=== PATIENT | male | born 1955 | race Caucasian/White ===

== ENCOUNTER 2016-10-15 21:20 | Emergency (ER) | payer OTHER ==
[~2016-10-15] VITALS: Ht 167.6 cm; Wt 73.0 kg
[~2016-10-15 21:20] MED LIST: ALTOPREV40 MG PO; AMLODIPINE BESY10 MG PO; ASPIR-LOW81 MG PO; BLOOD GLUCOSE1 EACH MC; CARVEDILOL12.5 MG PO; CLOPIDOGREL75 MG PO; COMBIVENT RESPIM4 GM IH; COREG12.5 M1 PO; Combivent IH; Coreg PO; ENDOCET 5-3251 EACH PO; Ecotrin PO; GABAPENTIN300 MG PO; GLIPIZIDE10 M1 PO; GLUCOPHAGE1000 MG PO; Glucophage PO; Glucotrol PO; HYDROCHLOROTH12.5 M3 PO; HYDRODIURIL,O12.5 M2 PO; Habitrol,Nicoderm CQ TD; JANUVIA100 MG PO; LANTUS 10100 UNITS/ SC; LANTUS 3 M100 UNITS1 SC; LISINOPRIL20 MG PO; LOVASTATIN20 MG PO; LOVASTATIN40 MG PO; METFORMIN HCL1000 MG PO; MEVACOR40 MG PO; MICROZIDE12.5 M1 PO; NEURONTIN300 MG PO; NICOTINE PATCH1 EAC2 TD; NORVASC10 MG PO; NORVASC5 MG PO; NOVOLOG PE100 UNITS/ SC; OXYCODONE HCL5 MG PO; PANTOPRAZOLE SO40 MG PO; PERCOCET 5/31 TABLET PO; PERCOCET 7.51 TABLET PO; PLAVIX75 MG PO; PRAVASTATIN SOD40 MG PO; PRINIVIL20 MG PO; PROTONIX40 MG PO; ZESTRIL20 MG PO; Zestril,Prinivil PO; [UNRECOGNIZED DRUG - REMARK]
[2016-10-16 00:19] VITALS: BP 128/80
== END 2016-10-16 00:33 | disposition home or self-care (01) ==
LOC: EME 21:20
DX: M54.5 Low back pain (principal); M79.1 Myalgia; W10.9XXA Fall (on) (from) unspecified stairs and steps, initial encounter; J45.909 Unspecified asthma, uncomplicated; I10 Essential (primary) hypertension; E78.5 Hyperlipidemia, unspecified; E11.9 Type 2 diabetes mellitus without complications; Z79.4 Long term (current) use of insulin; F17.200 Nicotine dependence, unspecified, uncomplicated; Z86.73 Personal history of transient ischemic attack (TIA), and cerebral infarction without residual deficits; Z87.442 Personal history of urinary calculi
CPT/HCPCS: 72100; 99281; 99284; J1170

== ENCOUNTER 2017-09-09 18:36 | Observation (INO) | payer OTHER ==
[~2017-09-09] VITALS: Ht 167.6 cm; Wt 67.5 kg
[2017-09-09 19:32] LABS: HEMATOCRIT 43.9 % (38.0-50.0); MCH 28.8 PG (29.0-34.0); MCHC 34.2 G/DL (30.0-36.0); MCV 84.3 FL (86-99); PLATELET COUNT 216 K/uL (156-360); RBC DIS.WIDTH-CV 14.4 % (11.8-14.6); RBC DIS.WIDTH-SD 43.9 % (39-53); RED BLOOD COUNT 5.21 M/uL (4.00-5.50); WHITE BLOOD COUNT 6.3 K/uL (4.1-10.2)
[2017-09-09 19:36] LABS: CARBON DIOXIDE (BICARBONATE) 27.7 MEQ/L (20-31)
[2017-09-09 19:46] LABS: CHLORIDE 101 mEq/L (99-109); POTASSIUM 4.1 mEq/L (3.7-5.4); SODIUM 135 mEq/L (136-147)
[2017-09-09 19:51] LABS: GFR ESTIMATE (CALCULATED) > 59 mL/min/ (58.99-99999); GLUCOSE 565 mg/dL (70-99)
[2017-09-09 19:52] LABS: UREA NITROGEN (BUN) 17 mg/dL (9-23)
[2017-09-09] MEDS ORDERED: METFORMIN HCL1000 MG PO (22:08)
[2017-09-09 22:18] LABS: BASOPHIL (%) 0.5 % (0-1); EOSINOPHIL (%) 1.3 % (0-5); EOSINOPHIL COUNT 0.1 K/uL (0-0.3); IMMATURE GRANULOCYTE (%) 0.2 % (0.0-0.7); LYMPHOCYTE (%) 17.1 % (15-42); LYMPHOCYTE COUNT 1.1 K/uL (1.0-2.8); MONOCYTE (%) 7.3 % (3-12); MONOCYTE COUNT 0.5 K/uL (0-0.8); NEUTROPHIL (%) 73.6 % (45-76); NEUTROPHIL COUNT 4.7 K/uL (1.8-6.4)
[2017-09-09 22:19] LABS: ALBUMIN 3.5 g/dL (3.2-4.8)
[2017-09-09 22:22] LABS: TOTAL PROTEIN 6.3 g/dL (6.4-8.3)
[2017-09-09 22:23] LABS: TOTAL BILIRUBIN 0.3 mg/dL (0.0-1.0)
[2017-09-09 22:24] LABS: SERUM ETHYL ALCOHOL < 10 mg/dL
[2017-09-09 22:25] LABS: ALKALINE PHOSPHATASE 131 IU/L (3-129)
[2017-09-09 22:27] LABS: AST (GOT) 17 IU/L (2-34); DIRECT BILIRUBIN 0.1 mg/dL (0.0-0.3)
[2017-09-09 22:28] LABS: ALT (GPT) 17 IU/L (3-49)
[2017-09-09 22:54] LABS: APPEARANCE CLEAR ((CLEAR)); BILIRUBIN NEGATIVE; BLOOD NEGATIVE; COLOR COLORLESS ((YELLOW)); GLUCOSE (STRIP) >=500; KETONES 5; LEUKOCYTES NEGATIVE; NITRITE NEGATIVE; PROTEIN (STRIP) NEGATIVE; SPECIFIC GRAVITY 1.025 (1.000-1.030); UCUL ADDED? NO; UROBILINOGEN 0.2 MG/DL (0.2-1.0)
[2017-09-09 23:03] LABS: AMPHETAMINE NEGATIVE (500 ng/mL); BARBITURATES NEGATIVE (200 ng/mL); BENZODIAZEPINES NEGATIVE (150 ng/mL); BUPRENORPHINE NEGATIVE (10 ng/mL); COCAINE NEGATIVE (150 ng/mL); METHADONE NEGATIVE (200 ng/mL); METHAMPHETAMINE NEGATIVE (500 ng/mL); OPIATES (MORPHINE) NEGATIVE (100 ng/mL); OXYCODONE NEGATIVE (100 ng/mL); PHENCYCLIDINE NEGATIVE (25 ng/mL); PROPOXYPHENE NEGATIVE (300 ng/mL); THC CANNABINOIDS NEGATIVE (50 ng/mL); TRICYCLIC ANTIDEPRESSANTS NEGATIVE (300 ng/mL)
[2017-09-09 23:42] LABS: HDL CHOLESTEROL 42 MG/DL (Desirable>=40); NON-HDL CHOLESTEROL 170 mg/dL (Desirable<160); TOTAL CHOLESTEROL 212 mg/dL (Desirable<200); TRIGLYCERIDES 605 MG/DL (Normal: <150)
[2017-09-09 23:55] VITALS: BP 185/93
[2017-09-10 03:50] VITALS: BP 130/82
[2017-09-10 07:42] VITALS: BP 128/75
[2017-09-10 11:14] VITALS: BP 135/76
[2017-09-10 12:12] LABS: HEMOGLOBIN A1c (GLYCOHEMOGLOB) 14.9 % (Below 5.7)
[2017-09-10] MEDS ORDERED: NICOTINE PATCH1 EAC2 TD (14:36)
[2017-09-10] MEDS ORDERED: ATORVASTATIN CA80 MG PO (14:36)
[2017-09-10] MEDS ORDERED: LISINOPRIL20 MG PO (14:36)
[2017-09-10] MEDS ORDERED: CARVEDILOL6.25 MG PO (14:36)
[2017-09-10] MEDS ORDERED: CLOPIDOGREL75 MG PO (14:36)
[2017-09-10] MEDS ORDERED: LANTUS 3 M100 UNITS1 SC (14:36)
[2017-09-10] MEDS ORDERED: ASPIR-LOW81 MG PO (14:36)
[2017-09-10] MEDS ORDERED: LEVEMIR FL100 UNIT/1 SC (15:05)
[2017-09-10] MEDS ORDERED: PEN NEEDLE1 EAC9 MC (15:05)
== END 2017-09-10 16:07 | disposition home or self-care (01) ==
LOC: EME 18:36 → 5SOUTH 21:59 → EDOF 21:59 → 5SOUTH 21:59 → ENRESERV 22:00 → 5SOUTH 23:36
PROVIDERS: Emergency Medicine; Hospitalist; Physician Assistant Medical
DX: R20.0 Anesthesia of skin (principal); R53.1 Weakness; I69.398 Other sequelae of cerebral infarction; Z91.14 Patient's other noncompliance with medication regimen; I50.22 Chronic systolic (congestive) heart failure; J44.9 Chronic obstructive pulmonary disease, unspecified; F17.210 Nicotine dependence, cigarettes, uncomplicated; I42.9 Cardiomyopathy, unspecified; E11.40 Type 2 diabetes mellitus with diabetic neuropathy, unspecified; I10 Essential (primary) hypertension; E78.5 Hyperlipidemia, unspecified; G89.29 Other chronic pain; Z79.4 Long term (current) use of insulin; Z79.82 Long term (current) use of aspirin; Z79.02 Long term (current) use of antithrombotics/antiplatelets
CPT/HCPCS: 70450; 70551; 80048; 80061; 80076; 81003; 82010; 82803; 82948; 83036; 83735; 85025; 85027; 93005; 93880; 99202; 99281; 99284; G0378; G0480; J0360; J1644; J3480; J7030

== ENCOUNTER 2017-11-20 11:37 | Inpatient (IN) | payer OTHER ==
[~2017-11-20] VITALS: Ht 167.6 cm; Wt 61.2 kg
[2017-11-20] VITALS (9 sets, daily range): BP systolic 96–187; BP diastolic 58–107
[~2017-11-20 11:37] MED LIST changes: +ATORVASTATIN CA80 MG PO; +CARVEDILOL6.25 MG PO; +LEVEMIR FL100 UNIT/1 SC; +PEN NEEDLE1 EAC9 MC
[2017-11-20 12:28] LABS: BASOPHIL (%) 0.7 % (0-1); BASOPHIL COUNT 0.1 K/uL (0-0.1); EOSINOPHIL COUNT 0.1 K/uL (0-0.3); HEMATOCRIT 48.7 % (38.0-50.0); HEMOGLOBIN 15.9 G/DL (12.5-16.6); IMMATURE GRANULOCYTE (%) 0.1 % (0.0-0.7); LYMPHOCYTE (%) 15.3 % (15-42); LYMPHOCYTE COUNT 1.1 K/uL (1.0-2.8); MCH 28.5 PG (29.0-34.0); MCHC 32.6 G/DL (30.0-36.0); MCV 87.3 FL (86-99); MONOCYTE (%) 4.8 % (3-12); MONOCYTE COUNT 0.4 K/uL (0-0.8); NEUTROPHIL (%) 78.1 % (45-76); NEUTROPHIL COUNT 5.7 K/uL (1.8-6.4); PLATELET COUNT 211 K/uL (156-360); RBC DIS.WIDTH-CV 15.4 % (11.8-14.6); RED BLOOD COUNT 5.58 M/uL (4.00-5.50); WHITE BLOOD COUNT 7.3 K/uL (4.1-10.2)
[2017-11-20 12:32] LABS: INTER. NORMALIZED RATIO 0.9
[2017-11-20 12:35] LABS: PTT 23.8 SEC (25-37)
[2017-11-20 12:47] LABS: TROP-I INTERPRETATION NEGATIVE; TROPONIN-I < 0.01 ng/mL (0.0-0.30)
[2017-11-20 12:56] LABS: CHLORIDE 98 MEQ/L (99-109); CREATININE 1.1 MG/DL (0.6-1.3); GFR ESTIMATE (CALCULATED) > 59 mL/min/ (58.99-99999); GLUCOSE 362 mg/dL (70-99); POTASSIUM 4.4 MEQ/L (3.7-5.4); SODIUM 135 MEQ/L (136-147); UREA NITROGEN (BUN) 27 mg/dL (9-23)
[2017-11-20 13:31] LABS: COMMENTS - BLOOD GASES A+C+; FI02 0.21 %; PCO2 22 mm Hg (35-45); PO2 101 mm Hg (80-100); SITE RR; pH 7.25 (7.35-7.45)
[2017-11-20 13:32] LABS: BASE EXCESS -15.3 mEq/L (-3 to +3); BICARBONATE 9.6 mEq/L (22-26); METHEMOGLOBIN 1.1 % (0-1.5)
[2017-11-20] MEDS ORDERED: CLOPIDOGREL75 MG PO (14:46)
[2017-11-20] MEDS ORDERED: METFORMIN HCL1000 MG PO (14:46)
[2017-11-20] MEDS ORDERED: CARVEDILOL6.25 MG PO (14:47)
[2017-11-20] MEDS ORDERED: ATORVASTATIN CA80 MG PO (14:47)
[2017-11-20] MEDS ORDERED: LISINOPRIL20 MG PO (14:47)
[2017-11-20] MEDS ORDERED: ASPIR 8181 M1 PO (14:47)
[2017-11-20] MEDS ORDERED: LEVEMIR FL100 UNIT/1 SC (14:48)
[2017-11-20 16:57] LABS: CHLORIDE 106 MEQ/L (99-109); CREATININE 0.9 MG/DL (0.6-1.3); GFR ESTIMATE (CALCULATED) > 59 mL/min/ (58.99-99999); GLUCOSE 262 mg/dL (70-99); HDL CHOLESTEROL 44 MG/DL (Desirable>=40); LDL CHOLESTEROL 132 mg/dL (Desirable<100); MAGNESIUM 2.1 mg/dl (1.3-2.7); NON-HDL CHOLESTEROL 160 mg/dL (Desirable<160); PHOSPHORUS 2.9 mg/dL (2.5-4.9); POTASSIUM 4.2 MEQ/L (3.7-5.4); SODIUM 139 MEQ/L (136-147); TOTAL CHOLESTEROL 204 mg/dL (Desirable<200); TRIGLYCERIDES 141 MG/DL (Normal: <150); UREA NITROGEN (BUN) 21 mg/dL (9-23)
[2017-11-20 19:59] LABS: CHLORIDE 108 mEq/L (99-109); SODIUM 136 mEq/L (136-147)
[2017-11-20 20:01] LABS: GLUCOSE 362 mg/dL (70-99)
[2017-11-20 20:04] LABS: CREATININE 1.2 mg/dL (0.6-1.3); GFR ESTIMATE (CALCULATED) > 59 mL/min/ (58.99-99999); PHOSPHORUS 1.9 mg/dL (2.5-4.9)
[2017-11-20 20:05] LABS: UREA NITROGEN (BUN) 20 mg/dL (9-23)
[2017-11-20 20:24] LABS: BENZODIAZEPINES, URINE SCREEN Negative (200 ng/mL)
[2017-11-21] VITALS (16 sets, daily range): BP systolic 14–149; BP diastolic 58–92
[2017-11-21 00:40] LABS: CHLORIDE 111 mEq/L (99-109); SODIUM 137 mEq/L (136-147)
[2017-11-21 00:42] LABS: GLUCOSE 220 mg/dL (70-99)
[2017-11-21 00:45] LABS: PHOSPHORUS 2.5 mg/dL (2.5-4.9)
[2017-11-21 00:46] LABS: CREATININE 1.1 mg/dL (0.6-1.3); GFR ESTIMATE (CALCULATED) > 59 mL/min/ (58.99-99999)
[2017-11-21 00:47] LABS: UREA NITROGEN (BUN) 25 mg/dL (9-23)
[2017-11-21 05:42] LABS: HEMATOCRIT 38.9 % (38.0-50.0); MCH 27.7 PG (29.0-34.0); MCHC 32.1 G/DL (30.0-36.0); MCV 86.3 FL (86-99); PLATELET COUNT 154 K/uL (156-360); RBC DIS.WIDTH-CV 15.2 % (11.8-14.6); RBC DIS.WIDTH-SD 47.8 % (39-53); RED BLOOD COUNT 4.51 M/uL (4.00-5.50); WHITE BLOOD COUNT 6.3 K/uL (4.1-10.2)
[2017-11-21 05:43] LABS: HEMOGLOBIN 12.5 G/DL (12.5-16.6)
[2017-11-21 06:06] LABS: CHLORIDE 111 MEQ/L (99-109); GLUCOSE 138 mg/dL (70-99); POTASSIUM 3.8 MEQ/L (3.7-5.4); SODIUM 137 MEQ/L (136-147); UREA NITROGEN (BUN) 17 mg/dL (9-23)
[2017-11-21 06:11] LABS: CREATININE 0.6 MG/DL (0.6-1.3)
[2017-11-21 06:12] LABS: GFR ESTIMATE (CALCULATED) > 59 mL/min/ (58.99-99999); PHOSPHORUS 1.7 mg/dL (2.5-4.9)
[2017-11-21 08:49] LABS: CHLORIDE 110 MEQ/L (99-109); CREATININE 0.6 MG/DL (0.6-1.3); GFR ESTIMATE (CALCULATED) > 59 mL/min/ (58.99-99999); GLUCOSE 145 mg/dL (70-99); POTASSIUM 3.8 MEQ/L (3.7-5.4); SODIUM 137 MEQ/L (136-147); UREA NITROGEN (BUN) 17 mg/dL (9-23)
[2017-11-21 10:51] LABS: HEMOGLOBIN A1c (GLYCOHEMOGLOB) 16.1 % (Below 5.7)
[2017-11-21 12:16] LABS: CHLORIDE 108 MEQ/L (99-109); CREATININE 0.6 MG/DL (0.6-1.3); GFR ESTIMATE (CALCULATED) > 59 mL/min/ (58.99-99999); PHOSPHORUS 1.7 mg/dL (2.5-4.9); POTASSIUM 3.7 MEQ/L (3.7-5.4); SODIUM 135 MEQ/L (136-147); UREA NITROGEN (BUN) 17 mg/dL (9-23)
[2017-11-21 12:33] LABS: GLUCOSE 269 mg/dL (70-99)
[2017-11-22 07:18] VITALS: BP 140/82
[2017-11-22 15:11] VITALS: BP 142/92
[2017-11-22 23:49] VITALS: BP 164/78
[2017-11-23 07:37] VITALS: BP 119/76
[2017-11-23 16:05] VITALS: BP 163/95
[2017-11-23 23:50] VITALS: BP 134/81
[2017-11-24 06:04] LABS: HEMATOCRIT 43.7 % (38.0-50.0); HEMOGLOBIN 14.2 G/DL (12.5-16.6); MCH 28.1 PG (29.0-34.0); MCHC 32.5 G/DL (30.0-36.0); MCV 86.5 FL (86-99); PLATELET COUNT 168 K/uL (156-360); RBC DIS.WIDTH-CV 15.3 % (11.8-14.6); RED BLOOD COUNT 5.05 M/uL (4.00-5.50)
[2017-11-24 06:33] LABS: CHLORIDE 106 MEQ/L (99-109); CREATININE 0.6 MG/DL (0.6-1.3); GFR ESTIMATE (CALCULATED) > 59 mL/min/ (58.99-99999); GLUCOSE 95 mg/dL (70-99); POTASSIUM 3.4 MEQ/L (3.7-5.4); SODIUM 141 MEQ/L (136-147); UREA NITROGEN (BUN) 12 mg/dL (9-23)
[2017-11-24 07:25] VITALS: BP 131/82
[2017-11-25] VITALS: BP 182/110
[2017-11-25 01:09] VITALS: BP 147/74
[2017-11-25 07:48] VITALS: BP 109/74
[2017-11-25] MEDS ORDERED: NICOTINE PATCH1 EAC2 TD (11:30)
== END 2017-11-25 14:00 | disposition home or self-care (01) | DRG 64 ==
LOC: EME 11:37 → 5SOUTH 13:41 → EDOF 13:41 → 4WEST 13:41 → ENRESERV 13:45 → 4WEST 15:27 → ENRESERV 11-21 13:49 → 5SOUTH 11-21 14:59
PROVIDERS: Emergency Medicine; Hospitalist; Internal Medicine; Internal Medicine Critical Care Medicine
DX: I63.40 Cerebral infarction due to embolism of unspecified cerebral artery (principal); E11.10 Type 2 diabetes mellitus with ketoacidosis without coma; I11.0 Hypertensive heart disease with heart failure; I50.22 Chronic systolic (congestive) heart failure; E78.5 Hyperlipidemia, unspecified; F17.200 Nicotine dependence, unspecified, uncomplicated; F14.10 Cocaine abuse, uncomplicated; G81.91 Hemiplegia, unspecified affecting right dominant side; Z91.19 Patient's noncompliance with other medical treatment and regimen; R64 Cachexia; J44.9 Chronic obstructive pulmonary disease, unspecified; E11.65 Type 2 diabetes mellitus with hyperglycemia; E11.649 Type 2 diabetes mellitus with hypoglycemia without coma; E87.6 Hypokalemia; F41.9 Anxiety disorder, unspecified; G89.29 Other chronic pain; Z59.0 Homelessness; Z79.4 Long term (current) use of insulin
CPT/HCPCS: 36600; 70450; 70551; 71045; 80048; 80048 91; 80061; 80306 90; 82010; 82948; 83036; 83735; 84100; 84484; 85025; 85027; 85610; 85730; 87040; 87449; 87641; 92610 GN; 93005; 93306; 97530 GO; 99281; 99285; J1650; J1815; J7030; J7050; J7120; S0028

== ENCOUNTER 2017-12-01 13:00 | Emergency (ER) | payer OTHER ==
[~2017-12-01] VITALS: Ht 167.6 cm; Wt 61.6 kg
[~2017-12-01 13:00] MED LIST changes: +ASPIR 8181 M1 PO
[2017-12-01 14:57] LABS: HEMATOCRIT 40.2 % (38.0-50.0); HEMOGLOBIN 13.2 G/DL (12.5-16.6); MCH 28.4 PG (29.0-34.0); MCHC 32.8 G/DL (30.0-36.0); MCV 86.6 FL (86-99); RBC DIS.WIDTH-CV 14.9 % (11.8-14.6); RBC DIS.WIDTH-SD 46.7 % (39-53); RED BLOOD COUNT 4.64 M/uL (4.00-5.50); WHITE BLOOD COUNT 6.5 K/uL (4.1-10.2)
[2017-12-01 15:00] LABS: PLATELET COUNT 307 K/uL (156-360)
[2017-12-01 15:14] LABS: CHLORIDE 104 mEq/L (99-109); POTASSIUM 4.2 mEq/L (3.7-5.4); SODIUM 138 mEq/L (136-147)
[2017-12-01 15:20] LABS: CREATININE 1.1 mg/dL (0.6-1.3); GFR ESTIMATE (CALCULATED) > 59 mL/min/ (58.99-99999)
[2017-12-01 15:21] LABS: UREA NITROGEN (BUN) 15 mg/dL (9-23)
[2017-12-01 15:27] LABS: GLUCOSE 500 mg/dL (70-99)
[2017-12-01 15:43] LABS: MAGNESIUM 2.2 mg/dL (1.3-2.7)
[2017-12-01 15:50] LABS: CARBON DIOXIDE (BICARBONATE) 28.1 MEQ/L (20-31)
[2017-12-01 15:55] LABS: TROP-I INTERPRETATION NEGATIVE; TROPONIN-I < 0.01 ng/mL (0.0-0.30)
[2017-12-01 16:33] LABS: CHLORIDE 104 mEq/L (99-109); POTASSIUM 3.7 mEq/L (3.7-5.4); SODIUM 139 mEq/L (136-147)
[2017-12-01 16:34] LABS: GLUCOSE 367 mg/dL (70-99)
[2017-12-01 16:38] LABS: CREATININE 0.9 mg/dL (0.6-1.3); GFR ESTIMATE (CALCULATED) > 59 mL/min/ (58.99-99999); PHOSPHORUS 2.8 mg/dL (2.5-4.9)
[2017-12-01 16:39] LABS: UREA NITROGEN (BUN) 13 mg/dL (9-23)
[2017-12-01 18:37] LABS: CHLORIDE 103 mEq/L (99-109); SODIUM 138 mEq/L (136-147)
[2017-12-01 18:39] LABS: GLUCOSE 291 mg/dL (70-99)
[2017-12-01 18:43] LABS: CREATININE 0.8 mg/dL (0.6-1.3); GFR ESTIMATE (CALCULATED) > 59 mL/min/ (58.99-99999)
[2017-12-01 18:44] LABS: UREA NITROGEN (BUN) 12 mg/dL (9-23)
[2017-12-01 20:10] LABS: CHLORIDE 106 mEq/L (99-109); POTASSIUM 3.7 mEq/L (3.7-5.4); SODIUM 139 mEq/L (136-147)
[2017-12-01 20:11] LABS: GLUCOSE 372 mg/dL (70-99)
[2017-12-01 20:15] LABS: CREATININE 0.8 mg/dL (0.6-1.3); GFR ESTIMATE (CALCULATED) > 59 mL/min/ (58.99-99999); PHOSPHORUS 2.2 mg/dL (2.5-4.9)
[2017-12-01 20:16] LABS: UREA NITROGEN (BUN) 12 mg/dL (9-23)
[2017-12-01 22:15] VITALS: BP 131/77
[2017-12-03 10:32] LABS: HEMOGLOBIN A1c (GLYCOHEMOGLOB) 16.2 % (Below 5.7)
== END 2017-12-01 22:40 | disposition home or self-care (01) ==
LOC: EME 13:00
PROVIDERS: Emergency Medicine
DX: E11.65 Type 2 diabetes mellitus with hyperglycemia (principal); I45.2 Bifascicular block; J44.9 Chronic obstructive pulmonary disease, unspecified; E11.40 Type 2 diabetes mellitus with diabetic neuropathy, unspecified; E78.5 Hyperlipidemia, unspecified; F17.200 Nicotine dependence, unspecified, uncomplicated; Z79.4 Long term (current) use of insulin; Z79.82 Long term (current) use of aspirin; Z86.39 Personal history of other endocrine, nutritional and metabolic disease; Z86.73 Personal history of transient ischemic attack (TIA), and cerebral infarction without residual deficits; Z90.49 Acquired absence of other specified parts of digestive tract; Z59.0 Homelessness
CPT/HCPCS: 71046; 80048; 80048 91; 82010; 82803; 82948; 83036; 83735; 84100; 84484; 85027; 93005; 99281; 99285; J7030